=== PATIENT | male | born 1975 | race Caucasian/White ===

== ENCOUNTER 2024-11-26 21:33 | Emergency (ER) | payer OTHER ==
[2024-11-26 21:44] VITALS: BMI 27.6
[2024-11-26 22:34] LABS: ABSOLUTE IMMATURE GRANULOCYTES 0.03 x10^3/uL (0.0-0.031); BASOPHILS # 0.02 x10^3/uL (0.01-0.08); EOSINOPHIL % 0.6 % (0.8-7.0); EOSINOPHILS # 0.06 x10^3/uL (0.04-0.54); MCHC 33.2 g/dl (32.3-36.5); MEAN CELL VOLUME 96.0 fl (79.0-92.2); MEAN PLT VOLUME 10.3 fl (9.4-12.4); MONOCYTE # 1.25 x10^3/uL (0.30-0.82); MONOCYTE % 12.6 % (5.3-12.2); RDW 12.5 % (12.1-15.9)
[2024-11-26 23:06] LABS: GLUCOSE,RANDOM 90 mg/dL (74-106); TOT PROT 8.8 g/dl (6.4-8.2)
[2024-11-26 23:07] LABS: CO2 26 mmol/L (21-32)
[2024-11-26 23:09] LABS: ALK PHOS 61 U/L (40-150)
[2024-11-26 23:11] LABS: SGOT/AST 107 U/L (5-34); SGPT/ALT 37 U/L (0-55)
[2024-11-26 23:12] LABS: CREATININE 1.01 mg/dL (0.55-1.3)
[2024-11-26] MEDS ORDERED: PANTOPRAZOLE SODIUM 40 MG VIAL ONE (23:16)
[2024-11-26] MEDS: SODIUM CHLORIDE 0.9% 1000 ML INFUS.BAG IV ONE (23:38)
[2024-11-26] MEDS: PANTOPRAZOLE SODIUM 40 MG VIAL IVPUSH ONE (23:38)
[2024-11-27 00:09] LABS: INR 1.19 (0.83-1.09); PROTHROMBIN TIME (PATIENT) 13.0 SEC (9.7-13.0)
[2024-11-27 00:12] LABS: ACTIVATED PTT 30.2 SECONDS (25.2-36.5)
[2024-11-27 00:27] LABS: GLUCOSE,RANDOM 88.0 mg/dL (74-106)
[2024-11-27 00:28] LABS: CO2 26.0 mmol/L (21-32)
[2024-11-27 00:30] LABS: ALK PHOS 62.0 U/L (40-150)
[2024-11-27 00:32] LABS: SGOT/AST 36.0 U/L (5-34); SGPT/ALT 29.0 U/L (0-55)
[2024-11-27 00:33] LABS: CREATININE 1.23 mg/dL (0.55-1.3)
[2024-11-27 00:43] LABS: TOT PROT 6.7 g/dl (6.4-8.2)
[2024-11-27 01:01] VITALS: BP 136/70; PULSE 74; RESP 18; TEMP 98.2
[2024-11-27 01:04] LABS: HCV DIAGNOSTIC IN-HOUSE W/RFLX NON-REACTIVE (NONREACTIVE); HIV INTERPRETATION NEGATIVE (NEGATIVE)
[2024-11-27 01:10] LABS: MCHC 32.8 g/dl (32.3-36.5); MEAN CELL VOLUME 96.3 fl (79.0-92.2); MEAN PLT VOLUME 10.4 fl (9.4-12.4); RDW 12.6 % (12.1-15.9)
== END 2024-11-27 01:44 | disposition home or self-care (01) ==
LOC: JER 21:33
PROC: 3E033GC Introduction of Other Therapeutic Substance into Peripheral Vein, Percutaneous Approach (ICD-10-PCS; principal; 2024-11-26)
DX: R10.84 Generalized abdominal pain (principal); K92.1 Melena
CPT/HCPCS: 36415; 76705-TC; 80053; 82272; 83690; 83735; 85025; 85027; 85610; 85730; 86803; 86850; 86900; 86901; 87045; 87046; 87205; 87338; 87389; 99285-25